=== PATIENT | female | born 1985 | race American Indian/Alaskan Native ===

== ENCOUNTER 2017-04-21 13:44 | Emergency (ER) | payer SELFPAY ==
[2017-04-21 14:11] VITALS: BP 142/82
--- NOTE | 2017-04-21 18:05 | XRay Report ---
FINAL REPORT EXAM: XR CHEST ROUTINE 2V HISTORY: cough TECHNIQUE: PA and lateral views of the chest PRIORS: None. FINDINGS: Lines, tubes, and devices: N/A Lungs and pleura: Trachea is normal in position. Lungs are clear of infiltrate, pleural effusion, vascular congestion, or pneumothorax. Cardiomediastinal silhouette: Cardiac and mediastinal silhouettes are unremarkable. Other: Bony structures are intact. IMPRESSION: No acute cardiopulmonary process seen.
--- NOTE | 2017-04-21 18:33 | Emergency Department Report ---
- General Chief Complaint: Upper Respiratory Infection Stated Complaint: FLU LIKE SYMPTOMS Time Seen by Provider: 04/21/17 14:01 Source: patient Mode of arrival: Ambulatory Limitations: No Limitations - History of Present Illness Initial Comments: This is a 32-year-old female nontoxic, well nourished in appearance, no acute signs of distress presents to the ED with c/o of productive cough, rhinorrhea 10 days. Patient denies any recent travels, long car ride, recent hospital stays. Denies any calf pain or tenderness. Describes the cough as green mucous production. Denies any chest pain, shortness of breath, headache, stiff neck, numbness, tingling, fever, chills, nausea, vomiting, abdominal pain. Patient states allergies to latex, penicillin, and zinc. Denies past medical history. MD Complaint: cough, rhinorrhea, nasal congestion -: days(s) (10) Severity: mild Severity scale (0 -10): 0 Consistency: constant Improves With: nothing Worsens With: nothing Associated Symptoms: rhinorrhea, nasal congestion, cough. denies: fever, chills , myalgias, diaphoresis, headache, sore throat, stiff neck, chest pain, shortness of breath, abdominal pain, nausea, vomiting, diarrhea, dysuria, rash, confusion, right sweats, weight loss, epistaxis, hoarseness, ear pain Treatments Prior to Arrival: none - Related Data Previous Rx's Medication Instructions Recorded Last Taken Type Azithromycin [Zithromax Z-LENA] 250 mg PO DAILY #6 tablet 06/24/14 Unknown Rx Sulfamethoxazole/Trimethoprim 1 each PO BID #20 tablet 06/24/14 Unknown Rx [Bactrim Ds] metroNIDAZOLE [Flagyl] 500 mg PO BID #14 tablet 06/24/14 Unknown Rx Azithromycin [Zithromax Z-LENA] 250 mg PO DAILY #6 tablet 04/21/17 Unknown Rx Benzonatate [Tessalon Perle] 100 mg PO Q8H #20 capsule 04/21/17 Unknown Rx Allergies Allergy/AdvReac Type Severity Reaction Status Date / Time aluminum [Aluminum] Allergy Rash Verified 06/24/14 12:07 latex Allergy Rash Verified 06/24/14 12:07 Penicillins Allergy Rash Verified 06/24/14 12:07 zinc [Zinc] Allergy Rash Verified 06/24/14 12:07 ED Review of Systems ROS: Stated complaint: FLU LIKE SYMPTOMS Other details as noted in HPI Constitutional: denies: chills, fever Eyes: denies: eye pain, eye discharge, vision change ENT: denies: ear pain, throat pain Respiratory: cough. denies: shortness of breath, wheezing Cardiovascular: denies: chest pain, palpitations Endocrine: no symptoms reported Gastrointestinal: denies: abdominal pain, nausea, diarrhea Genitourinary: denies: urgency, dysuria, discharge Musculoskeletal: denies: back pain, joint swelling, arthralgia Skin: denies: rash, lesions Neurological: denies: headache, weakness, paresthesias Psychiatric: denies: anxiety, depression Hematological/Lymphatic: denies: easy bleeding, easy bruising ED Past Medical Hx - Past Medical History Previous Medical History?: Yes Hx Psychiatric Treatment: No Additional medical history: Sinusitis, Left and right eye stye - Surgical History Past Surgical History?: No Hx Appendectomy: No - Social History Smoking Status: Never Smoker Substance Use Type: Alcohol, Marijuana - Medications Home Medications: Home Medications Medication Instructions Recorded Confirmed Last Taken Type Azithromycin [Zithromax Z-LENA] 250 mg PO DAILY #6 tablet 06/24/14 Unknown Rx Sulfamethoxazole/Trimethoprim 1 each PO BID #20 tablet 06/24/14 Unknown Rx [Bactrim Ds] metroNIDAZOLE [Flagyl] 500 mg PO BID #14 tablet 06/24/14 Unknown Rx Azithromycin [Zithromax Z-LENA] 250 mg PO DAILY #6 tablet 04/21/17 Unknown Rx Benzonatate [Tessalon Perle] 100 mg PO Q8H #20 capsule 04/21/17 Unknown Rx ED Physical Exam - General Limitations: No Limitations General appearance: alert, in no apparent distress - Head Head exam: Present: atraumatic, normocephalic, normal inspection - Eye Eye exam: Present: normal appearance, PERRL, EOMI. Absent: scleral icterus, conjunctival injection, nystagmus, periorbital swelling, periorbital tenderness Pupils: Present: normal accommodation - ENT ENT exam: Present: normal exam, normal orophraynx, mucous membranes moist, TM's normal bilaterally, normal external ear exam - Neck Neck exam: Present: normal inspection, full ROM. Absent: tenderness, meningismus, lymphadenopathy, thyromegaly - Respiratory Respiratory exam: Present: normal lung sounds bilaterally. Absent: respiratory distress, wheezes, rales, rhonchi, stridor, chest wall tenderness, accessory muscle use, decreased breath sounds, prolonged expiratory - Cardiovascular Cardiovascular Exam: Present: regular rate, normal rhythm, normal heart sounds. Absent: bradycardia, tachycardia, irregular rhythm, systolic murmur, diastolic murmur, rubs, gallop - GI/Abdominal GI/Abdominal exam: Present: soft, normal bowel sounds. Absent: distended, tenderness, guarding, rebound, rigid, diminished bowel sounds - Rectal Rectal exam: Present: deferred - Extremities Exam Extremities exam: Present: normal inspection, full ROM, normal capillary refill. Absent: tenderness, pedal edema, joint swelling, calf tenderness - Back Exam Back exam: Present: normal inspection, full ROM. Absent: tenderness, CVA tenderness (R), CVA tenderness (L), muscle spasm, paraspinal tenderness, vertebral tenderness, rash noted - Neurological Exam Neurological exam: Present: alert, oriented X3, CN II-XII intact, normal gait, reflexes normal - Psychiatric Psychiatric exam: Present: normal affect, normal mood - Skin Skin exam: Present: warm, dry, intact, normal color. Absent: rash ED Course Vital Signs 04/21/17 14:05 Temperature 98.1 F Pulse Rate 86 Respiratory 20 Rate Blood Pressure 142/82 O2 Sat by Pulse 99 Oximetry - Reevaluation(s) Reevaluation #1: 04/21/17 18:35 Patient is speaking in full sentences with no signs of distress noted. ED Medical Decision Making - Medical Decision Making This is a 32-year-old female presents with upper respiratory infection. Patient is stable and was examined by me. X-ray has been obtained and dictated by radiologist with normal examination. Patient received Tessalon Perle in the ED. Patient will be treated with Z-Lena and Tessalon Perles. Patient was instructed Follow-up with a primary care doctor in 3-5 days or if symptoms worsen and continue return to emergency room as soon as possible. At time time of discharge, the patient does not seem toxic or ill in appearance. No acute signs of distress noted. Patient agrees to discharge treatment plan of care. No further questions noted by the patient. Critical care attestation.: If time is entered above; I have spent that time in minutes in the direct care of this critically ill patient, excluding procedure time. ED Disposition Clinical Impression: Upper respiratory infection Qualifiers: URI type: unspecified URI Qualified Code(s): J06.9 - Acute upper respiratory infection, unspecified Disposition: - TO HOME OR SELFCARE Is pt being admited?: No Does the pt Need Aspirin: No Condition: Stable Instructions: Upper Respiratory Infection (ED), Azithromycin (By mouth), Benzonatate (By mouth) Additional Instructions: Follow-up with a primary care doctor in 3-5 days or if symptoms worsen and continue return to emergency room as soon as possible. Prescriptions: Azithromycin [Zithromax Z-LENA] 250 mg PO DAILY #6 tablet Benzonatate [Tessalon Perle] 100 mg PO Q8H #20 capsule Referrals: PRIMARY CAREMD [Primary Care Provider] - 3-5 Days SUMMER MURGUIA MD [Staff Physician] - 3-5 Days [facility] [Outside] - 3-5 Days [facility] [Outside] - 3-5 Days Forms: Work/School Release Form(ED)
[2017-04-21] MEDS ORDERED: TESSALON PERLES PO ONE (18:36)
== END 2017-04-21 19:28 | disposition home or self-care (01) ==
LOC: ED 13:44
DX: J06.9 Acute upper respiratory infection, unspecified (principal); F12.10 Cannabis abuse, uncomplicated; Z88.0 Allergy status to penicillin; Z88.8 Allergy status to other drugs, medicaments and biological substances; Z91.040 Latex allergy status
CPT/HCPCS: 71020; 99283

== ENCOUNTER 2017-10-10 09:19 | Emergency (ER) | payer SELFPAY ==
[2017-10-10 09:38] VITALS: BP 135/97
--- NOTE | 2017-10-10 11:04 | Emergency Department Report ---
Blank Doc - Documentation Documentation: Patient is a 32-year-old [place] female with no past medical history of asthma COPD who is presenting with wheezing. Patient states she's had wheeze with shortness of breath for the past 3 days. This a nonproductive cough. Patient denies any fevers chills. Patient does have some chest tightness that she says 4 out of 10 in severity. Patient will be given a neb treatment and CXR
[2017-10-10] MEDS: DELTASONE PO ONE (11:13)
[2017-10-10] MEDS: TESSALON PERLES PO ONE (11:15)
[2017-10-10] MEDS: ATROVENT IH ONE (11:22)
[2017-10-10] MEDS: PROVENTIL IH ONE (11:23)
--- NOTE | 2017-10-10 12:36 | XRay Report ---
CHEST ONE VIEW INDICATION: Cough, wheeze. COMPARISON: 04/21/2017. FINDINGS: Portable, single, frontal chest radiograph demonstrates normal cardiomediastinal silhouette. Clear lungs. Unremarkable bones. CONCLUSION: No acute disease in the chest. Thank you for the opportunity to participate in this patient's care.
--- NOTE | 2017-10-10 13:22 | Emergency Department Report ---
<GLADYS VIVAS Stephen - Last Filed: 10/10/17 13:22> ED Asthma HPI - General Chief Complaint: Dyspnea/Respdistress Stated Complaint: HAYLEE Time Seen by Provider: 10/10/17 10:57 Source: patient Mode of arrival: Ambulatory Limitations: No Limitations - History of Present Illness Initial Comments: Patient is a 32-year-old [place] female with no past medical history of asthma COPD who is presenting with wheezing. Patient states she's had wheeze with shortness of breath for the past 3 days. This a nonproductive cough. Patient denies any fevers chills. Patient does have some chest tightness that she says 4 out of 10 in severity. Patient will be given a neb treatment and CXR - Related Data Previous Rx's Medication Instructions Recorded Last Taken Type Azithromycin [Zithromax Z-LENA] 250 mg PO DAILY #6 tablet 06/24/14 Unknown Rx Sulfamethoxazole/Trimethoprim 1 each PO BID #20 tablet 06/24/14 Unknown Rx [Bactrim Ds] metroNIDAZOLE [Flagyl] 500 mg PO BID #14 tablet 06/24/14 Unknown Rx Azithromycin [Zithromax Z-LENA] 250 mg PO DAILY #6 tablet 04/21/17 Unknown Rx Benzonatate [Tessalon Perle] 100 mg PO Q8H #20 capsule 04/21/17 Unknown Rx ALBUTEROL Inhaler [ProAir HFA 2 puff IH QID PRN #1 inhalation 10/10/17 Unknown Rx Inhaler] Azithromycin [Zithromax Z-LENA] 250 mg PO DAILY #6 tablet 10/10/17 Unknown Rx Benzonatate [Tessalon Perle] 100 mg PO TID #12 capsule 10/10/17 Unknown Rx predniSONE [Deltasone] 20 mg PO QDAY #5 tab 10/10/17 Unknown Rx Allergies Allergy/AdvReac Type Severity Reaction Status Date / Time aluminum [Aluminum] Allergy Rash Verified 06/24/14 12:07 latex Allergy Rash Verified 06/24/14 12:07 Penicillins Allergy Rash Verified 06/24/14 12:07 zinc [Zinc] Allergy Rash Verified 06/24/14 12:07 ED Review of Systems ROS: Stated complaint: HAYLEE Other details as noted in HPI ED Past Medical Hx - Past Medical History Previous Medical History?: No Hx Psychiatric Treatment: No Additional medical history: Sinusitis, Left and right eye stye - Surgical History Hx Appendectomy: No - Social History Smoking Status: Former Smoker Substance Use Type: None - Medications Home Medications: Home Medications Medication Instructions Recorded Confirmed Last Taken Type Azithromycin [Zithromax Z-LENA] 250 mg PO DAILY #6 tablet 06/24/14 Unknown Rx Sulfamethoxazole/Trimethoprim 1 each PO BID #20 tablet 06/24/14 Unknown Rx [Bactrim Ds] metroNIDAZOLE [Flagyl] 500 mg PO BID #14 tablet 06/24/14 Unknown Rx Azithromycin [Zithromax Z-LENA] 250 mg PO DAILY #6 tablet 04/21/17 Unknown Rx Benzonatate [Tessalon Perle] 100 mg PO Q8H #20 capsule 04/21/17 Unknown Rx ALBUTEROL Inhaler [ProAir HFA 2 puff IH QID PRN #1 inhalation 10/10/17 Unknown Rx Inhaler] Azithromycin [Zithromax Z-LENA] 250 mg PO DAILY #6 tablet 10/10/17 Unknown Rx Benzonatate [Tessalon Perle] 100 mg PO TID #12 capsule 10/10/17 Unknown Rx predniSONE [Deltasone] 20 mg PO QDAY #5 tab 10/10/17 Unknown Rx ED Physical Exam - General Limitations: No Limitations ED Course Vital Signs 10/10/17 09:36 Temperature 98.9 F Pulse Rate 82 Blood Pressure 135/97 O2 Sat by Pulse 95 Oximetry - Reevaluation(s) Reevaluation #1: 10/10/17 13:22 Patient was screened by Dr. Romeo Tracey and patient started on albuterol 10 mg and Atrovent 1 mg nebulizer which is in progress. She is also given doses of 40 mg by mouth. Chest x-ray reveals no acute cardiopulmonary processes. We will reevaluate after treatment ED Medical Decision Making - Radiology Data Radiology results: report reviewed Patient: RADHA FOLEY MR#: [id number] : 1985 Acct:[id number] Age/Sex: 32 / F ADM Date: 10/10/17 Loc: ED Attending Dr: Ordering Physician: ROMEO TRACEY MD Date of Service: 10/10/17 Procedure(s): XR chest 1V ap Accession Number(s): [id number] cc: ROMEO TRACEY MD Fluoro Time In Minutes: CHEST ONE VIEW INDICATION: Cough, wheeze. COMPARISON: 04/21/2017. FINDINGS: Portable, single, frontal chest radiograph demonstrates normal cardiomediastinal silhouette. Clear lungs. Unremarkable bones. CONCLUSION: No acute disease in the chest. Thank you for the opportunity to participate in this patient's care. Transcribed By: RS Dictated By: ROSI RILEY MD Electronically Authenticated By: ROSI RILEY MD Signed Date/Time: 10/10/17 1231 DD/ - Medical Decision Making Patient: RADHA FOLEY MR#: [id number] : 1985 Acct:[id number] Age/Sex: 32 / F ADM Date: 10/10/17 Loc: ED Attending Dr: Ordering Physician: ROMEO TRACEY MD Date of Service: 10/10/17 Procedure(s): XR chest 1V ap Accession Number(s): [id number] cc: ROMEO TRACEY MD Fluoro Time In Minutes: CHEST ONE VIEW INDICATION: Cough, wheeze. COMPARISON: 04/21/2017. FINDINGS: Portable, single, frontal chest radiograph demonstrates normal cardiomediastinal silhouette. Clear lungs. Unremarkable bones. CONCLUSION: No acute disease in the chest. Thank you for the opportunity to participate in this patient's care. Transcribed By: RS Dictated By: ROSI RILEY MD Electronically Authenticated By: ROSI RILEY MD Signed Date/Time: 10/10/17 1231 DD/ Critical care attestation.: If time is entered above; I have spent that time in minutes in the direct care of this critically ill patient, excluding procedure time. ED Disposition Clinical Impression: Bronchospasm Acute bronchitis Qualifiers: Bronchitis organism: unspecified organism Qualified Code(s): J20.9 - Acute bronchitis, unspecified Disposition: DC-01 TO HOME OR SELFCARE Condition: Stable Instructions: Acute Bronchitis (ED) Prescriptions: ALBUTEROL Inhaler [ProAir HFA Inhaler] 2 puff IH QID PRN #1 inhalation PRN Reason: Shortness Of Breath Azithromycin [Zithromax Z-LENA] 250 mg PO DAILY #6 tablet Benzonatate [Tessalon Perle] 100 mg PO TID #12 capsule predniSONE [Deltasone] 20 mg PO QDAY #5 tab Referrals: PRIMARY CARE, [Primary Care Provider] - 3-5 Days <ROMEO TRACEY - Last Filed: 10/10/17 13:40> ED Medical Decision Making - Medical Decision Making Lungs are clear to auscultation at this time patient will be discharged home. Patient is a smoker she will be started on antibiotics for smoking bronchitis given prednisone Tessalon albuterol inhaler. ED Disposition Is pt being admited?: No Does the pt Need Aspirin: No
== END 2017-10-10 13:49 | disposition home or self-care (01) ==
LOC: ED 09:19
DX: J20.9 Acute bronchitis, unspecified (principal)
CPT/HCPCS: 71045; 94640; 99283; J7512

== ENCOUNTER 2017-11-28 10:42 | Emergency (ER) | payer SELFPAY ==
[2017-11-28] MEDS ORDERED: MAGNESIUM SULFATE 1 GM in NACL 0.9% 50 ML IV ONE (11:39)
[2017-11-28] MEDS ORDERED: ATROVENT IH ONE (11:39)
[2017-11-28] MEDS ORDERED: NACL 0.9% 1000 ML 1,000 ML IV ONE (11:39)
[2017-11-28] MEDS ORDERED: PROVENTIL IH ONE (11:39)
--- NOTE | 2017-11-28 11:45 | Emergency Department Report ---
Blank Doc - Documentation Documentation: Patient is a 32-year-old female who states she's had a little over a month of wheezing cough congestion. Patient was initially seen by me several weeks ago and diagnosed with acute bronchitis with bronchospasm. Patient states she took the entire course of prednisone and albuterol but when the prednisone for off the patient states that she started feeling symptoms again. Patient states she is also seen at [facility] for the same and was diagnosed with acute bronchitis and given a nebulizer machine. Patient states she's been using the machine every 3-4 hours. Patient states she gets to the point where she is coughing so much she feels though she can't breathe. Brief physical exam patient has diffuse wheeze with some increased work of breathin patient is able to speak in full sentences however. Patient will be moved to the main for continued treatment and evaluation. G.
[2017-11-28 11:54] LABS: Basophils # (Auto) 0.1 K/mm3 (0.0-0.1); Basophils % (Auto) 0.8 % (0.0-1.8); Eosinophils # (Auto) 0.5 K/mm3 (0.0-0.4); Eosinophils % (Auto) 5.5 % (0.0-4.3); Hematocrit 39.9 % (30.3-42.9); Hemoglobin 13.7 gm/dl (10.1-14.3); Lymphocytes # (Auto) 1.8 K/mm3 (1.2-5.4); Lymphocytes % (Auto) 21.7 % (13.4-35.0); Mean Corpuscular HGB Conc 34 % (30-34); Mean Corpuscular Hemoglobin 33 pg (28-32); Mean Corpuscular Volume 96 fl (79-97); Monocytes # (Auto) 0.8 K/mm3 (0.0-0.8); Monocytes % (Auto) 9.9 % (0.0-7.3); Platelet Count 286 K/mm3 (140-440); Red Blood Count 4.16 M/mm3 (3.65-5.03); Red Cell Distribution Width 12.7 % (13.2-15.2)
[2017-11-28] MEDS ORDERED: ADRENALINE P/F SUB-Q ONE (12:13)
[2017-11-28] MEDS ORDERED: TORADOL IV ONE (12:14)
--- NOTE | 2017-11-28 12:14 | Emergency Department Report ---
ED General Adult HPI - General Chief complaint: Upper Respiratory Infection Stated complaint: HAYLEE Time Seen by Provider: 11/28/17 11:32 Source: patient, RN notes reviewed, old records reviewed Mode of arrival: Ambulatory Limitations: No Limitations - History of Present Illness Initial comments: This is a 32-year-old female who is unknown to this provider. She does not have a local primary care doctor and she denies chronic medical conditions. She reports that she is not that her last menstrual period is November 10, and she has not delivery given in the past 6 weeks. The patient presents to the ER with a complaint of cough, chest wall pain, wheezing, shortness of breath. Symptoms have been intermittent over the past 6 weeks. They are temporarily relieved with steroids, occasionally antibiotics, and nebulizer therapy. Patient reports that she's been doing a lot of traveling , but that her symptoms started before her recent trips. She reports going to "all over the [address] [place] [id number]." She reports that her fianc is on the road quite a bit. She also reports that she recently stopped consuming tobacco products, although her fianc smokes quite a bit, and she also indicates that she started inhaling cannabis products, but she is occasionally eating cannabis products. She reports that her fianc does consume cannabis and smoke form at least once per week. Her symptoms do not radiate anywhere, and she describes total body discomfort and body aches. -: Gradual Location: chest, back, left, right, upper extremity, lower extremity Quality: aching Consistency: constant Improves with: medication Worsens with: movement Associated Symptoms: cough, malaise, shortness of breath. denies: confusion, diaphoresis, fever/chills, headaches, loss of appetite, nausea/vomiting, rash, seizure, syncope, weakness - Related Data Previous Rx's Medication Instructions Recorded Last Taken Type Azithromycin [Zithromax Z-NEEL] 250 mg PO DAILY #6 tablet 06/24/14 Unknown Rx Sulfamethoxazole/Trimethoprim 1 each PO BID #20 tablet 06/24/14 Unknown Rx [Bactrim Ds] metroNIDAZOLE [Flagyl] 500 mg PO BID #14 tablet 06/24/14 Unknown Rx Azithromycin [Zithromax Z-NEEL] 250 mg PO DAILY #6 tablet 04/21/17 Unknown Rx Benzonatate [Tessalon Perle] 100 mg PO Q8H #20 capsule 04/21/17 Unknown Rx ALBUTEROL Inhaler [ProAir HFA 2 puff IH QID PRN #1 inhalation 10/10/17 Unknown Rx Inhaler] Azithromycin [Zithromax Z-NEEL] 250 mg PO DAILY #6 tablet 10/10/17 Unknown Rx Benzonatate [Tessalon Perle] 100 mg PO TID #12 capsule 10/10/17 Unknown Rx predniSONE [Deltasone] 20 mg PO QDAY #5 tab 10/10/17 Unknown Rx Albuterol Sulfate [Proair 90 mcg IH Q4HR PRN #2 aer.pow.ba 11/28/17 Unknown Rx Respiclick] Benzonatate [Tessalon Perles] 100 mg PO Q8HR PRN #30 capsule 11/28/17 Unknown Rx Fluticasone [Flonase] 1 spray NS QDAY #1 bottle 11/28/17 Unknown Rx Ipratropium [place] [Atrovent Hfa] 12.9 gm IH Q4HR #2 hfa.aer.ad 11/28/17 Unknown Rx methylPREDNISolone [Medrol Dose 4 mg PO QDAY #1 pack 11/28/17 Unknown Rx Neel] Allergies Allergy/AdvReac Type Severity Reaction Status Date / Time aluminum [Aluminum] Allergy Rash Verified 11/28/17 10:54 latex Allergy Rash Verified 11/28/17 10:54 Penicillins Allergy Rash Verified 11/28/17 10:54 zinc [Zinc] Allergy Rash Verified 11/28/17 10:54 ED Review of Systems ROS: Stated complaint: HAYLEE Other details as noted in HPI Constitutional: malaise. denies: fever Eyes: denies: vision change Respiratory: cough, shortness of breath, SOB with exertion, SOB at rest, wheezing Cardiovascular: denies: syncope Gastrointestinal: denies: nausea Genitourinary: denies: dysuria Musculoskeletal: arthralgia, myalgia Neurological: weakness Psychiatric: anxiety ED Past Medical Hx - Past Medical History Previous Medical History?: Yes Hx Psychiatric Treatment: No Additional medical history: Sinusitis, Left and right eye stye - Surgical History Past Surgical History?: No Hx Appendectomy: No - Social History Smoking Status: Current Some Day Smoker Substance Use Type: Marijuana - Medications Home Medications: Home Medications Medication Instructions Recorded Confirmed Last Taken Type Azithromycin [Zithromax Z-NEEL] 250 mg PO DAILY #6 tablet 06/24/14 Unknown Rx Sulfamethoxazole/Trimethoprim 1 each PO BID #20 tablet 06/24/14 Unknown Rx [Bactrim Ds] metroNIDAZOLE [Flagyl] 500 mg PO BID #14 tablet 06/24/14 Unknown Rx Azithromycin [Zithromax Z-NEEL] 250 mg PO DAILY #6 tablet 04/21/17 Unknown Rx Benzonatate [Tessalon Perle] 100 mg PO Q8H #20 capsule 04/21/17 Unknown Rx ALBUTEROL Inhaler [ProAir HFA 2 puff IH QID PRN #1 inhalation 10/10/17 Unknown Rx Inhaler] Azithromycin [Zithromax Z-NEEL] 250 mg PO DAILY #6 tablet 10/10/17 Unknown Rx Benzonatate [Tessalon Perle] 100 mg PO TID #12 capsule 10/10/17 Unknown Rx predniSONE [Deltasone] 20 mg PO QDAY #5 tab 10/10/17 Unknown Rx Albuterol Sulfate [Proair 90 mcg IH Q4HR PRN #2 aer.pow.ba 11/28/17 Unknown Rx Respiclick] Benzonatate [Tessalon Perles] 100 mg PO Q8HR PRN #30 capsule 11/28/17 Unknown Rx Fluticasone [Flonase] 1 spray NS QDAY #1 bottle 11/28/17 Unknown Rx Ipratropium [place] [Atrovent Hfa] 12.9 gm IH Q4HR #2 hfa.aer.ad 11/28/17 Unknown Rx methylPREDNISolone [Medrol Dose 4 mg PO QDAY #1 pack 11/28/17 Unknown Rx Neel] ED Physical Exam - General Limitations: No Limitations General appearance: alert, in no apparent distress - Head Head exam: Present: atraumatic, normocephalic - Eye Eye exam: Present: normal appearance, EOMI. Absent: nystagmus - ENT ENT exam: Present: normal exam, normal orophraynx, mucous membranes moist, normal external ear exam - Neck Neck exam: Present: normal inspection, full ROM - Respiratory Respiratory exam: Present: wheezes, rhonchi, chest wall tenderness. Absent: respiratory distress - Cardiovascular Cardiovascular Exam: Present: regular rate, normal rhythm, normal heart sounds. Absent: bradycardia, tachycardia, irregular rhythm, systolic murmur, diastolic murmur, rubs, gallop - GI/Abdominal GI/Abdominal exam: Present: soft, normal bowel sounds. Absent: distended, tenderness, guarding, rebound, rigid, pulsatile mass - Extremities Exam Extremities exam: Present: normal inspection, full ROM, normal capillary refill , other (there is no palpable cord. This negative Homans sign. 2+ pulses noted in the bilateral upper extremities. Compartments are soft.). Absent: pedal edema, joint swelling, calf tenderness - Back Exam Back exam: Present: normal inspection, full ROM. Absent: paraspinal tenderness , vertebral tenderness - Neurological Exam Neurological exam: Present: alert, oriented X3, CN II-XII intact, normal gait, other (Extraocular movements intact. Tongue midline. No facial droop. Facial sensation intact to light touch in the V1, V2, V3 distribution bilaterally. 5 and 5 strength in 4 extremities.. Sensation is intact to light touch in 4 extremities.). Absent: motor sensory deficit - Psychiatric Psychiatric exam: Present: normal affect, normal mood - Skin Skin exam: Present: warm, dry, intact, normal color. Absent: rash ED Course Vital Signs 11/28/17 11/28/17 11/28/17 10:44 12:12 14:21 Temperature 98.5 F Pulse Rate 96 H 110 H Pulse Rate [ 107 H Bilateral Throughout] Respiratory 16 Rate Respiratory 18 Rate [Bilateral Throughout] Blood Pressure 131/81 Blood Pressure 155/81 [Left] O2 Sat by Pulse 100 97 Oximetry - Reevaluation(s) Reevaluation #1: 11/28/17 13:48 Differential diagnosis, including but not limited to: Bronchitis, reactive airway disease, fungal infection, sarcoid, tobacco pneumonitis, nonspecific pneumonitis Assessment and plan: 32-year-old female with multiple episodes of cough, wheezing and shortness of breath over the past 6 weeks. Most likely has multiple triggers, including exposure to tobacco, marijuana, possible allergies. She is afebrile with reassuring vital signs, and is low risk by well 's criteria. The patient spoke to me in complete sentences without desaturation , and is not in any acute respiratory distress that would require positive pressure ventilation or intubation. The patient was counseled extensively to not consume any smoke products, and to make sure that people around her are not smoking. Patient was also informed that smoke particles can stay on other people's clothing and exacerbates less trigger her symptoms. The patient does not meet criteria for inpatient admission at this time, and she was instructed to adhere to the aforementioned lifestyle modifications, and she is medically suitable to follow up with outpatient pulmonology or primary care. Reevaluation #2: 11/28/17 14:07 The patient is reassessed. She is speaking in full sentences on a phone. She is not desaturating. Still having some wheezing. In absolutely no respiratory distress whatsoever. I again advised the patient that she should follow-up in outpatient pulmonary doctor or primary care doctor for further outpatient management and evaluation. Tachycardia is appreciated, I would expect this after epinephrine and albuterol laceration. Reevaluation #3: 11/28/17 14:23 The patient continues to walk back and forth amongst the emergency room while speaking on a cell phone in full sentences without any stridor or obvious respiratory difficulty. ED Medical Decision Making - Lab Data Result diagrams: 11/28/17 11:43 11/28/17 11:43 Vital Signs 11/28/17 11/28/17 10:44 12:12 Temperature 98.5 F Pulse Rate 96 H Pulse Rate [ 107 H Bilateral Throughout] Respiratory 18 Rate [Bilateral Throughout] Blood Pressure 131/81 O2 Sat by Pulse 100 Oximetry Lab Results 11/28/17 11/28/17 Range/Units 11:43 11:43 WBC 8.4 (4.5-11.0) K/mm3 RBC 4.16 (3.65-5.03) M/mm3 Hgb 13.7 (10.1-14.3) gm/dl Hct 39.9 (30.3-42.9) % MCV 96 (79-97) fl MCH 33 H (28-32) pg MCHC 34 (30-34) % RDW 12.7 L (13.2-15.2) % Plt Count 286 (140-440) K/mm3 Lymph % (Auto) 21.7 (13.4-35.0) % [place] % (Auto) 9.9 H (0.0-7.3) % Eos % (Auto) 5.5 H (0.0-4.3) % Baso % (Auto) 0.8 (0.0-1.8) % Lymph # 1.8 (1.2-5.4) K/mm3 [place] # 0.8 (0.0-0.8) K/mm3 Eos # 0.5 H (0.0-0.4) K/mm3 Baso # 0.1 (0.0-0.1) K/mm3 Seg Neutrophils % 62.1 (40.0-70.0) % Seg Neutrophils # 5.2 (1.8-7.7) K/mm3 Sodium 133 L (137-145) mmol/L Potassium 4.3 (3.6-5.0) mmol/L Chloride 95.6 L (98-107) mmol/L Carbon Dioxide 24 (22-30) mmol/L Anion Gap 18 mmol/L BUN 7 (7-17) mg/dL Creatinine 0.6 L (0.7-1.2) mg/dL Estimated GFR > 60 ml/min BUN/Creatinine Ratio 12 % Glucose 94 (65-100) mg/dL Calcium 9.4 (8.4-10.2) mg/dL - EKG Data -: EKG Interpreted by Me Rate: tachycardia - EKG Data When compared to previous EKG there are: previous EKG unavailable 11/28/17 13:53 Sinus tachycardia, 30 bpm, normal axis, QTC prolonged, Q waves noted in 1, aVL, atrial enlargement, incomplete right bundle branch block, abnormal EKG, not a stemi - Radiology Data Radiology results: image reviewed interpreted by me: X-ray of the chest, interpreted by me, no acute disease Critical care attestation.: If time is entered above; I have spent that time in minutes in the direct care of this critically ill patient, excluding procedure time. ED Disposition Clinical Impression: Reactive airway disease Disposition: [id number] TO HOME OR SELFCARE Is pt being admited?: No Does the pt Need Aspirin: No Condition: Good Instructions: Reactive Airways Disease (ED) Additional Instructions: As we discussed, patient should avoid consumption of all smoking and tobacco, cannabis-related products. The patient should avoid exposure to the products and a secondhand fashion as well, as particles from these aforementioned products may cause/exacerbate symptoms. Therefore, anyone at the patient lives with orders close with should attempt to consume smoke products outside if at all possible, and then change and/or wash the clothing before being close proximity to the patient. I recommend that the patient follow up with a primary care doctor or any illicit pulmonary doctors within the next 2 weeks for further evaluation and management. Take the cough medicine, steroids as directed, take a breathing medication as directed, and return to the ER right away with fevers, chills, lethargy, irritability, or current shortness of breath , projectile vomiting, inability to tolerate liquid feeds The EKG demonstrated nonspecific abnormalities. Follow up with a primary care doctor or telephone lines repairer within the next 4 weeks for abnormal EKG. Prescriptions: Albuterol Sulfate [Proair Respiclick] 90 mcg IH Q4HR PRN #2 aer.pow.ba PRN Reason: Wheezing Benzonatate [Tessalon Perles] 100 mg PO Q8HR PRN #30 capsule PRN Reason: Cough Fluticasone [Flonase] 1 spray NS QDAY #1 bottle Ipratropium [place] [Atrovent Hfa] 12.9 gm IH Q4HR #2 hfa.aer.ad methylPREDNISolone [Medrol Dose Neel] 4 mg PO QDAY #1 pack Referrals: PRIMARY CAREMD [Primary Care Provider] - 3-5 Days JOHN LOPEZ MD [Staff Physician] - 3-5 Days JAMES AWAD MD [Staff Physician] - 3-5 Days SUMMER MURGUIA MD [Staff Physician] - 3-5 Days [facility] [Provider Group] - 3-5 Days [facility] [Provider Group] - 3-5 Days
[2017-11-28 12:29] LABS: BUN/Creatinine Ratio 12; Blood Urea Nitrogen 7 mg/dL (7-17); Calcium 9.4 mg/dL (8.4-10.2); Hemolysis Index 9
[2017-11-28 14:22] VITALS: BP 155/81
--- NOTE | 2017-11-28 15:54 | XRay Report ---
PORTABLE CHEST: Dyspnea. An AP portable view of the chest demonstrates a normal cardiac contour considering the limits of this technique. The lungs are clear with no evidence of infiltrate, fluid or failure. IMPRESSION: Normal portable chest.
== END 2017-11-28 14:57 | disposition home or self-care (01) ==
LOC: ED 10:42
DX: J45.909 Unspecified asthma, uncomplicated (principal); F17.200 Nicotine dependence, unspecified, uncomplicated; F12.10 Cannabis abuse, uncomplicated; Z88.0 Allergy status to penicillin; Z88.8 Allergy status to other drugs, medicaments and biological substances; Z91.040 Latex allergy status
CPT/HCPCS: 36415; 71045; 80048; 85025; 93005; 93010; 96365; 96372; 96375; 99284; J0171; J1885; J2930; J3475; J7030

== ENCOUNTER 2017-12-09 16:44 | Emergency (ER) | payer SELFPAY ==
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
[2017-12-09 18:29] LABS: HCG Qualitative,Urine Negative (Negative)
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
[2017-12-09] MEDS ORDERED: BOOSTRIX IM ONE (19:18)
[2017-12-09] MEDS ORDERED: NORCO 5/325 PO ONE (19:18)
[2017-12-09 19:56] VITALS: BP 152/73
== END 2017-12-09 19:56 | disposition home or self-care (01) ==
LOC: ED 16:44
DX: S81.831A Puncture wound without foreign body, right lower leg, initial encounter (principal); S81.802A Unspecified open wound, left lower leg, initial encounter; L03.115 Cellulitis of right lower limb; J45.909 Unspecified asthma, uncomplicated; F12.10 Cannabis abuse, uncomplicated; Z88.8 Allergy status to other drugs, medicaments and biological substances; Z91.040 Latex allergy status; Z88.0 Allergy status to penicillin; F17.200 Nicotine dependence, unspecified, uncomplicated; W34.00XA Accidental discharge from unspecified firearms or gun, initial encounter; Y93.89 Activity, other specified; Y92.89 Other specified places as the place of occurrence of the external cause; Y99.8 Other external cause status
CPT/HCPCS: 81025; 90471; 90715; 99284

== ENCOUNTER 2018-08-29 17:48 | Emergency (ER) | payer OTHER ==
[2018-08-29] MEDS ORDERED: PROVENTIL IH ONE (19:07)
[2018-08-29] MEDS ORDERED: DELTASONE PO ONE (19:07)
[2018-08-29] MEDS ORDERED: CLARITIN PO ONE (19:07)
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
[2018-08-29] MEDS ORDERED: DUONEB *Not for PRN Use IH ONE ×2 (21:04→21:07)
[2018-08-29 22:24] VITALS: BP 150/87
== END 2018-08-29 22:24 | disposition home or self-care (01) ==
LOC: ED 17:48
DX: J06.9 Acute upper respiratory infection, unspecified (principal); J45.901 Unspecified asthma with (acute) exacerbation; Z91.048 Other nonmedicinal substance allergy status; Z91.040 Latex allergy status; Z88.0 Allergy status to penicillin
CPT/HCPCS: 94640; 99283; J7512

== ENCOUNTER 2018-10-11 16:58 | Inpatient (IN) | payer SELFPAY ==
--- NOTE | 2018-10-11 17:16 | Emergency Department Report ---
Chief Complaint: Chest Pain Stated Complaint: SOB Time Seen by Provider: 10/11/18 17:13 - HPI History of Present Illness: Pt presents with chest tightness this morning at 10 AM +SOB +cough denies hx of asthma states three weeks ago she was admitted to [facility] for influenza and blood pressure issues, states her blood pressure was elevated at [place] and claims she was not prescribed anything for her blood pressure LNMP October 03, 2018 PMHx HTN +smoker, 1 pack per week +marijuana MSE screening note: Focused history and physical exam performed. Due to findings the following was ordered: labs, CXR, EKG ED Disposition for MSE Condition: Stable
[2018-10-11 17:36] LABS: Basophils % (Auto) 0.6 % (0.0-1.8); Eosinophils # (Auto) 0.3 K/mm3 (0.0-0.4); Eosinophils % (Auto) 5.4 % (0.0-4.3); Hemoglobin 12.7 gm/dl (10.1-14.3); Lymphocytes # (Auto) 1.8 K/mm3 (1.2-5.4); Lymphocytes % (Auto) 30.6 % (13.4-35.0); Mean Corpuscular HGB Conc 35 % (30-34); Mean Corpuscular Volume 95 fl (79-97); Monocytes # (Auto) 0.4 K/mm3 (0.0-0.8); Monocytes % (Auto) 6.3 % (0.0-7.3); Platelet Count 331 K/mm3 (140-440); Red Blood Count 3.88 M/mm3 (3.65-5.03); Red Cell Distribution Width 12.9 % (13.2-15.2)
[2018-10-11 17:49] LABS: BUN/Creatinine Ratio 16; Blood Urea Nitrogen 11 mg/dL (7-17); Calcium 8.8 mg/dL (8.4-10.2); Hemolysis Index 6; INR 0.97 (0.87-1.13)
[2018-10-11 17:50] LABS: Partial Thromboplastin Time 27.8 Sec. (24.2-36.6)
--- NOTE | 2018-10-11 19:18 | XRay Report ---
PROCEDURE: XR CHEST ROUTINE 2V TECHNIQUE: PA and lateral chest radiographs were obtained. HISTORY: cough, dx with flu 3 weeks ago COMPARISONS: None. FINDINGS: Heart: Normal. Mediastinum/Vessels: Normal. Lungs/Pleural space: Normal. Bony thorax: No acute osseous abnormality. IMPRESSION: Normal examination. This document is electronically signed by Neville Pearson MD., Oct 11 2018 07:16:09 PM ET
[2018-10-11] MEDS ORDERED: ASPIRIN PO ONE (19:25)
[2018-10-11] MEDS ORDERED: ASPIRIN ONE (19:25)
[2018-10-11] MEDS ORDERED: SUBLIMAZE IV ONE (20:35)
[2018-10-11] MEDS ORDERED: NITRO-BID 2% TP ONE (20:35)
[2018-10-11] MEDS ORDERED: ZOFRAN IV ONE (20:35)
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
--- NOTE | 2018-10-11 21:53 | Cat Scan Report ---
PROCEDURE: CT ANGIO CHEST TECHNIQUE: CTA of the chest obtained with intravenous contrast. HISTORY: chest pain, pleurisy COMPARISONS: X-ray of 11/28/2017. FINDINGS: No evidence for acute pulmonary embolus. Heart is normal in size. Great vessels are normal in caliber. There is no pneumothorax. No focal consolidation or effusion visualized. Partially visualized upper abdomen is unremarkable. IMPRESSION: No evidence for acute pulmonary embolus.. This document is electronically signed by Neville Pearson MD., Oct 11 2018 09:51:49 PM ET
[2018-10-11] MEDS ORDERED: ZOFRAN IV PRN (22:56)
[2018-10-11] MEDS ORDERED: NITROSTAT SL PRN (22:56)
[2018-10-11] MEDS ORDERED: MORPHINE IV PRN (22:56)
[2018-10-11] MEDS ORDERED: TYLENOL PR PRN (22:57)
[2018-10-11] MEDS ORDERED: HEPARIN ONE (23:32)
[2018-10-11] MEDS: HEPARIN SUB-Q SCH (23:36)
[2018-10-12 01:13] LABS: Creatine Kinase MB 1.4 ng/mL (0.0-4.0)
[2018-10-12] MEDS: NITRO-BID 2% TP SCH ×2 (05:37→12:47)
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
[2018-10-12 06:38] LABS: Creatine Kinase MB 1.2 ng/mL (0.0-4.0)
[2018-10-12] MEDS ORDERED: LEXISCAN IV ONE ×2 (09:16)
[2018-10-12] MEDS ORDERED: ASPIRIN PO SCH (10:00)
[2018-10-12] MEDS ORDERED: BENADRYL IV PRN (11:29)
[2018-10-12 12:04] VITALS: BP 139/97
[2018-10-12] MEDS ORDERED: SOLU-Medrol IV ONE (12:29)
[2018-10-12] MEDS: HEPARIN SUB-Q SCH (12:48)
--- NOTE | 2018-10-12 12:58 | Discharge Summary ---
Providers - Providers Date of Admission: 10/11/18 22:51 Date of discharge: 10/12/18 Attending physician: WENDY BARKER [facility] Condition: Stable Hospital course: Patient is 33 yo woman with a history of asthma who presented with substernal chest wall pains. CTA chest unremarkable. 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 Will give medrol dose pack in the interim Disposition: DC-01 TO HOME OR SELFCARE Time spent for discharge: 34 minutes Core Measure Documentation - Palliative Care Palliative Care/ Comfort Measures: Not Applicable - Core Measures Any of the following diagnoses?: none - VTE Discharge Requirements Deep Vein Thrombosis/Pulmonary Embolism Present on Admission: No Has pt received <5 days of overlap therapy or INR<2.0: No Anticoagulant overlap therapy prescribed at discharge: No Contraindication No Overlap Therapy order at DC: Not Indicated Exam - Physical Exam Narrative exam: Gen: WDWN, NAD, Awake, Alert, Orientated HEENT: NCAT, EOMI, PERRL, OP Clear Neck: supple, no adenopathy, no thyromegaly, no JVD CVS/Heart: RRR, normal S1S2, pulses present bilaterally Chest/Lungs: CTA B, Symmetrical chest expansion, good air entry bilaterally, reproducible chest wall tenderness, she literally jumps with touch pressure GI/Abdomen: soft, NTND, good bowel sounds, no guarding or rebound /Bladder: no suprapubic tenderness, no CVA or paraspinal tenderness Extermity/Skin: no c/c/e, no obvious rash MSK: FROM x 4 Neuro: CN 2-12 grossly intact, no new focal deficits Psych: calm - Constitutional Vitals: Temp Pulse Resp BP Pulse Ox 97.5 F L 88 18 139/97 100 10/12/18 12:04 10/12/18 12:03 10/12/18 12:03 10/12/18 12:03 10/12/18 12:03 Plan Activity: other (no strenous activity unless cleared by PCP) Diet: regular Special Instructions: smoking cessation Follow up with: HANNAH FINCH MD [Primary Care Provider] - 3-5 Days Prescriptions: methylPREDNISolone [Medrol Dose [place]] 1 dose PO DAILY #1 pack ALBUTEROL NEB's [Proventil 0.083% NEBS] 2.5 mg IH TID PRN #1 box PRN Reason: Wheezing ALBUTEROL Inhaler(NF) [VENTOLIN Inhaler(NF)] 2 puff IH Q4H PRN #1 inha PRN Reason: Shortness Of Breath
--- NOTE | 2018-10-13 03:56 | Treadmill Report ---
NUCLEAR PERFUSION STUDY. IMAGING PROTOCOL: The patient received 10 mCi of Technetium 99m Tetrofosmin for resting image and 28 mCi of Technetium 99m Tetrofosmin for stress imaging. The imaging for the whole procedure was completed 30-90 minutes following the initial injection of Technetium 99m Tetrofosmin. The SPECT imaging in the 180 degree arc was performed in the right anterior oblique projection. Computerized reconstruction of the images was performed for analysis. IMAGING RESULTS: Normal cavity size from stress to rest. Normal distribution of radionuclide in the anterior, inferior, septal, and apical regions. Gated SPECT, EF 58% with no wall motion abnormality. The patient infused Lexiscan with no EKG changes. SUMMARY: 1. Negative Lexiscan EKG. 2. Normal rest and stress myocardial perfusion scan. No significant stress ischemia. No wall motion abnormality. Gated SPECT EF 58%. JOB# [id number] CLIFFORD/SCOTT
== END 2018-10-12 15:06 | disposition home or self-care (01) | DRG 206 ==
LOC: ED 16:58 → 4A 22:51
PROVIDERS: ADMIT Internal Medicine; ATTEND Internal Medicine
DX: M94.0 Chondrocostal junction syndrome [Tietze] (principal); J45.909 Unspecified asthma, uncomplicated; F12.90 Cannabis use, unspecified, uncomplicated; F17.210 Nicotine dependence, cigarettes, uncomplicated; I10 Essential (primary) hypertension; Z72.89 Other problems related to lifestyle; Z79.899 Other long term (current) drug therapy; Z88.0 Allergy status to penicillin; Z91.040 Latex allergy status
CPT/HCPCS: 36415; 71046; 71275; 78452; 80048; 82550; 82553; 84484; 84702; 85025; 85379; 85610; 85730; 93005; 93010; 93017; G0378; A9502; J1200; J1644; J2405; J2785; J2930; J3010

== ENCOUNTER 2019-01-14 03:03 | Emergency (ER) | payer SELFPAY ==
--- NOTE | 2019-01-14 04:08 | XRay Report ---
CHEST 2 VIEWS INDICATION: cough and HAYLEE. COMPARISON: 10/11/2018 FINDINGS: Support devices: None. Heart: Within normal limits. Lungs/pleura: No acute air space or interstitial disease. No pneumothorax. Additional findings: None. IMPRESSION: 1. No acute findings. Signer Name: Chauncey Oviedo MD Signed: 01/14/2019 4:04 AM Workstation Name: [email or web address]
[2019-01-14] MEDS ORDERED: DUONEB *Not for PRN Use IH STA (04:49)
[2019-01-14] MEDS ORDERED: PEPCID PO ONE (04:49)
[2019-01-14] MEDS ORDERED: DECADRON IM ONE (04:49)
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
[2019-01-14 07:05] VITALS: BP 163/98
== END 2019-01-14 06:59 | disposition home or self-care (01) ==
LOC: ED 03:03
DX: T78.40XA Allergy, unspecified, initial encounter (principal); J40 Bronchitis, not specified as acute or chronic; J45.909 Unspecified asthma, uncomplicated; J06.9 Acute upper respiratory infection, unspecified; Y92.89 Other specified places as the place of occurrence of the external cause; Z88.0 Allergy status to penicillin; Z91.040 Latex allergy status
CPT/HCPCS: 71046; 96372; 99283; J1100

== ENCOUNTER 2020-03-12 16:46 | Emergency (ER) | payer MEDICAID ==
--- NOTE | 2020-03-12 16:58 | Emergency Department Report ---
Blank Doc - Documentation Documentation: 35-year-old female that presents with SOB and cough. This initial assessment/diagnostic orders/clinical plan/treatment(s) is/are subject to change based on patient's health status, clinical progression and re- assessment by fellow clinical providers in the ED. Further treatment and workup at subsequent clinical providers discretion. Patient/guardians urged not to elope from the ED as their condition may be serious if not clinically assessed and managed. Initial orders include: 1- Patient sent to [facility] for further evaluation and treatment 2- CXR
--- NOTE | 2020-03-12 17:52 | XRay Report ---
CHEST 2 VIEWS INDICATION / CLINICAL INFORMATION: cough. FINDINGS: SUPPORT DEVICES: None. HEART / MEDIASTINUM: No significant abnormality. LUNGS / PLEURA: No significant pulmonary or pleural abnormality. No pneumothorax. ADDITIONAL FINDINGS: No significant additional findings. IMPRESSION: 1. No acute findings. Signer Name: Barak Doe MD Signed: 03/12/2020 5:47 PM Workstation Name: [id number]
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
[2020-03-12] MEDS ORDERED: ALBUTEROL 2.5 MG/3 ML NEBU IH ONE (19:24)
[2020-03-12] MEDS ORDERED: predniSONE 20 MG TAB PO ONE (19:26)
[2020-03-12] MEDS ORDERED: IBUPROFEN 600 MG TAB PO ONE ×2 (20:11→20:14)
[2020-03-12 20:30] VITALS: BP 140/86
== END 2020-03-12 20:33 | disposition home or self-care (01) ==
LOC: ED 16:46
DX: J06.9 Acute upper respiratory infection, unspecified (principal); J45.909 Unspecified asthma, uncomplicated; R05 Cough; Z79.899 Other long term (current) drug therapy; Z88.0 Allergy status to penicillin; Z91.040 Latex allergy status; Z88.8 Allergy status to other drugs, medicaments and biological substances
CPT/HCPCS: 71046; 94640; 99283; J7512; 94644

== ENCOUNTER 2020-03-27 02:04 | Emergency (ER) | payer MEDICAID ==
[2020-03-27] MEDS ORDERED: IPRATROPIUM 0.02% NEBU 2.5 ML IH ONE ×2 (03:28→03:33)
[2020-03-27] MEDS ORDERED: ALBUTEROL 2.5 MG/3 ML NEBU IH ONE ×2 (03:28→03:34)
--- NOTE | 2020-03-27 05:06 | XRay Report ---
CHEST 2 VIEWS INDICATION / CLINICAL INFORMATION: Wheezing, cough, and SOB. COMPARISON: 03/12/20 FINDINGS: SUPPORT DEVICES: None. HEART / MEDIASTINUM: No significant abnormality. LUNGS / PLEURA: No significant pulmonary or pleural abnormality. No pneumothorax. ADDITIONAL FINDINGS: No significant additional findings. IMPRESSION: 1. No acute findings. No change. Signer Name: Sveta Escalera MD Signed: 03/27/2020 5:01 AM Workstation Name: [id number]
== END 2020-03-27 04:30 | disposition left against medical advice (07) ==
LOC: ED 02:04
DX: R06.02 Shortness of breath (principal); Z53.21 Procedure and treatment not carried out due to patient leaving prior to being seen by health care provider
CPT/HCPCS: 71046; 94644

== ENCOUNTER 2020-08-03 17:06 | Emergency (ER) | payer MEDICAID ==
--- NOTE | 2020-08-03 17:13 | Event Note ---
ED Screening Note ED Screening Note: SUPRAPUBIC PAIN LMP 2 M AGO This initial assessment/diagnostic orders/clinical plan/treatment(s) is/are martinez bject to change based on patients health status, clinical progression and re- assessment by fellow clinical providers in the ED. Further treatment and workup at subsequent clinical providers discretion. Patient/guardian urged not to elope from the ED as their condition may be serious if not clinically assessed and managed. Initial orders include: RO PREG
[2020-08-03 17:54] LABS: Hematocrit 38.2 % (30.3-42.9); Mean Corpuscular HGB Conc 34 % (30-34); Mean Corpuscular Volume 98 fl (79-97); Platelet Count 315 K/mm3 (140-440); Red Blood Count 3.91 M/mm3 (3.65-5.03)
[2020-08-03 18:16] LABS: BUN/Creatinine Ratio 10; Blood Urea Nitrogen 7 mg/dL (7-17); Hemolysis Index 4
[2020-08-03 18:21] LABS: Bilirubin,Urine NEG (Negative); Blood,Urine NEG (Negative); Calcium Oxalate Crystals,Urine 2+; Color,Urine Yellow (Yellow); Mucus,Urine 2+ /HPF; Protein,Urine <15 mg/dL mg/dL (Negative)
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
[2020-08-03] MEDS ORDERED: IBUPROFEN 800 MG TAB PO ONE (20:54)
--- NOTE | 2020-08-03 21:02 | Ultrasound Report ---
PELVIC ULTRASOUND INDICATION: Midline pelvic pain COMPARISON: None pertinent available TECHNIQUE: Transabdominal FINDINGS: Detail is low. Uterus is difficult to measure. Uterine length appears to be 16.9 cm however . The fundus is quite prominent and appears to be occupied by a large solid mass, presumably a large leiomyoma. This measures approximately 15 cm in diameter. Endometrial stripe is not seen. Ovaries not visualized. No adnexal masses are obvious. No free fluid is seen. IMPRESSION: Huge probable fundal leiomyoma Signer Name: Jermaine Starks MD Signed: 08/03/2020 8:57 PM Workstation Name: [id number]
[2020-08-03 21:56] VITALS: BP 136/66
== END 2020-08-03 21:57 | disposition home or self-care (01) ==
LOC: ED 17:06
DX: D25.9 Leiomyoma of uterus, unspecified (principal); N92.6 Irregular menstruation, unspecified; R10.2 Pelvic and perineal pain; J45.909 Unspecified asthma, uncomplicated; F12.10 Cannabis abuse, uncomplicated; Z79.899 Other long term (current) drug therapy; Z88.0 Allergy status to penicillin; Z91.040 Latex allergy status; Z88.8 Allergy status to other drugs, medicaments and biological substances
CPT/HCPCS: 36415; 76856; 80048; 81001; 84702; 85027; 86900; 86901

== ENCOUNTER 2021-11-26 12:02 | Emergency (ER) | payer MEDICAID ==
[2021-11-26 12:11] VITALS: BP 164/100
[2021-11-26 12:46] LABS: Basophils # (Auto) 0.1 K/mm3 (0.0-0.1); Basophils % (Auto) 0.7 % (0.0-1.8); Eosinophils # (Auto) 0.8 K/mm3 (0.0-0.4); Eosinophils % (Auto) 11.1 % (0.0-4.3); Hemoglobin 15.6 gm/dl (10.1-14.3); Lymphocytes % (Auto) 27.5 % (13.4-35.0); Mean Corpuscular HGB Conc 33 % (30-34); Mean Corpuscular Volume 95 fl (79-97); Monocytes # (Auto) 0.4 K/mm3 (0.0-0.8); Monocytes % (Auto) 5.2 % (0.0-7.3); Platelet Count 298 K/mm3 (140-440); Red Blood Count 4.94 M/mm3 (3.65-5.03); Red Cell Distribution Width 13.1 % (13.2-15.2)
[2021-11-26 13:07] LABS: BUN/Creatinine Ratio 15; Blood Urea Nitrogen 12 mg/dL (7-17); Calcium 9.5 mg/dL (8.4-10.2)
[2021-11-26 13:08] LABS: Alanine Aminotransferase 12 units/L (7-56); Albumin 4.7 g/dL (3.9-5); Hemolysis Index 12
[2021-11-26 13:09] LABS: Bilirubin,Urine NEG (Negative); Blood,Urine NEG (Negative); Color,Urine Amber (Yellow)
[2021-11-26 13:24] LABS: Mucus,Urine 3+ /HPF
[2021-11-26 13:30] LABS: HCG Qualitative,Urine Negative (Negative)
[2021-11-26] MEDS ORDERED: IBUPROFEN 800 MG TAB PO ONE (13:49)
[2021-11-26] MEDS ORDERED: BENZONATATE 100 MG CAP PO ONE (13:49)
--- NOTE | 2021-11-26 13:59 | XRay Report ---
CHEST 2 VIEWS INDICATION / CLINICAL INFORMATION: cough. COMPARISON: 03/27/2020 FINDINGS: SUPPORT DEVICES: None. HEART / MEDIASTINUM: No significant abnormality. LUNGS / PLEURA: No significant pulmonary or pleural abnormality. No pneumothorax. ADDITIONAL FINDINGS: No significant additional findings. IMPRESSION: 1. No acute findings. No change since 03/27/2020. Signer Name: Haja Sanabria Jr, MD Signed: 11/26/2021 1:54 PM Workstation Name: [id number]
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
[2021-11-26] MEDS ORDERED: ONDANSETRON 4 MG ODT TAB PO ONE ×2 (15:35→15:48)
== END 2021-11-26 16:37 | disposition home or self-care (01) ==
LOC: ED 12:02
DX: R05.9 Cough, unspecified (principal); Z20.822 Contact with and (suspected) exposure to COVID-19; J45.909 Unspecified asthma, uncomplicated; Z88.0 Allergy status to penicillin; Z88.8 Allergy status to other drugs, medicaments and biological substances; Z91.040 Latex allergy status; Z79.899 Other long term (current) drug therapy
CPT/HCPCS: 36415; 71046; 80053; 81001; 81025; 85025; 99284; J3490; Q0162